=== PATIENT | male | born 1955 | race Hispanic/Latino ===

== ENCOUNTER 2017-08-27 04:56 | Inpatient (IN) | payer OTHER ==
[2017-08-27 06:03] LABS: Basophils % (Auto) 0.5 % (0.0-1.8); Eosinophils % (Auto) 0.7 % (0.0-4.3); Hematocrit 44.6 % (35.5-45.6); Hemoglobin 14.8 gm/dl (11.8-15.2); Mean Corpuscular HGB Conc 33 % (32-34); Mean Corpuscular Hemoglobin 28 pg (28-32); Mean Corpuscular Volume 83 fl (84-94); Platelet Count 247 K/mm3 (140-440); Red Blood Count 5.36 M/mm3 (3.65-5.03); Red Cell Distribution Width 14.4 % (13.2-15.2); White Blood Count 11.1 K/mm3 (4.5-11.0)
[2017-08-27 06:09] LABS: Alanine Aminotransferase 15 units/L (7-56); Albumin 4.4 g/dL (3.9-5); Albumin/Globulin Ratio 1.7 %; Alkaline Phosphatase 58 units/L (35-129); Anion Gap 17 mmol/L; BUN/Creatinine Ratio 23; Blood Urea Nitrogen 16 mg/dL (9-20); Calcium 9.9 mg/dL (8.4-10.2); Carbon Dioxide 26 mmol/L (22-30); Chloride 99.1 mmol/L (98-107); Glucose 279 mg/dL (75-100); Potassium 3.8 mmol/L (3.6-5.0); Sodium 138 mmol/L (137-145)
--- NOTE | 2017-08-27 06:19 | Cat Scan Report ---
FINAL REPORT EXAM: CT HEAD/BRAIN WO CON HISTORY: confusion TECHNIQUE: Routine axial imaging was obtained the brain without IV contrast. FINDINGS: The ventricular system is appropriate in size and is symmetric. There is no evidence of acute stroke or hemorrhage. There is a remote lacunar infarct in the white matter of the right frontal lobe. The posterior fossa structures reveal mild volume loss. The sinuses reveal patchy mucosal thickening in the left ethmoid air cells. The mastoid air cells are well pneumatized. IMPRESSION: No evidence of acute stroke or hemorrhage. Remote lacunar infarct in the deep white matter of the right frontal lobe. Patchy left ethmoidal sinusitis.
[2017-08-27 08:14] LABS: Creatine Kinase 156 units/L (55-170); Creatine Kinase MB 2.5 ng/mL (0.0-4.0)
[2017-08-27] MEDS ORDERED: APRESOLINE IV ONE (11:11)
[2017-08-27 11:23] LABS: Urine Drugs of Abuse Note Disclamer
[2017-08-27 11:34] LABS: Bilirubin,Urine NEG (Negative); Blood,Urine NEG (Negative); Ketones,Urine TR mg/dL (Negative); Leukocyte Esterase,Urine NEG (Negative); Mucus,Urine 2+ /HPF; Nitrite,Urine NEG (Negative); Urobilinogen,Urine < 2.0 mg/dL (<2.0)
--- NOTE | 2017-08-27 11:38 | Emergency Department Report ---
HPI - General Chief Complaint: Altered Mental Status Time Seen by Provider: 08/27/17 11:10 - HPI HPI: 61-year-old male presents to the emergency department by EMS from the airport after returning from the [facility] after being there for about 6 months. The patient says that he was dealing with a lot of stress over in the [facility] and also had not gotten much sleep. However there was an episode in which the patient had confusion while on the plane. He was not sure how he got onto the plane, where he was, where he was going. He denied any headache, visual change, slurred speech or any other neurological deficits. He has a history of diabetes and says that he was found to have a blood sugar of about 500 by EMS at that time. Allegedly he was given some insulin but then encouraged to eat some "complex carbohydrates" so that he did not become hypoglycemic. He also has a history of hypertension and presents with very elevated blood pressure. The patient took some metformin and metoprolol just after presentation here. The patient says that the confusion has improved but he feels generally weak and dizzy. ED Past Medical Hx - Past Medical History Previous Medical History?: Yes Hx Hypertension: Yes Hx Diabetes: Yes Additional medical history: NeuroPathy, Vertigo - Surgical History Past Surgical History?: Yes Additional Surgical History: Back L4-L5 - Social History Smoking Status: Never Smoker Substance Use Type: None ED Review of Systems ROS: Stated complaint: HIGH BLOOD PRESSURE Other details as noted in HPI Comment: All other systems reviewed and negative Constitutional: denies: chills, fever Eyes: denies: eye pain, eye discharge, vision change ENT: denies: ear pain, throat pain Respiratory: denies: cough, shortness of breath, wheezing Cardiovascular: denies: chest pain, palpitations Gastrointestinal: denies: abdominal pain, nausea, diarrhea Genitourinary: denies: urgency, dysuria Musculoskeletal: denies: back pain, joint swelling, arthralgia Skin: denies: rash, lesions Neurological: weakness, confusion Physical Exam - Physical Exam Vital Signs: Vital Signs 08/27/17 08/27/17 05:12 11:17 Temperature 97.8 F 98.1 F Pulse Rate 86 82 Respiratory 18 17 Rate Blood Pressure 190/88 174/92 [Right] O2 Sat by Pulse 99 98 Oximetry Physical Exam: GENERAL: The patient is well-developed well-nourished. HENT: Normocephalic. Atraumatic. Patient has moist mucous membranes. EYES: Extraocular motions are intact. Pupils equal reactive to light bilaterally. No nystagmus. NECK: Supple. Trachea is midline. CHEST/LUNGS: Clear to auscultation. There is no respiratory distress noted. HEART/CARDIOVASCULAR: Regular. There is no tachycardia. There is no gallop rub or murmur. ABDOMEN: Abdomen is soft, nontender. Patient has normal bowel sounds. There is no abdominal distention. SKIN: Skin is warm and dry. NEURO: The patient is awake, alert, and oriented. The patient is cooperative. The patient has no focal neurologic deficits. The patient has normal speech. Cranial nerves II through XII grossly intact. No pronator drift. MUSCULOSKELETAL: There is no tenderness or deformity. There is no evidence of acute injury. ED Course Vital Signs 08/27/17 08/27/17 05:12 11:17 Temperature 97.8 F 98.1 F Pulse Rate 86 82 Respiratory 18 17 Rate Blood Pressure 190/88 174/92 [Right] O2 Sat by Pulse 99 98 Oximetry ED Medical Decision Making - Lab Data Result diagrams: 08/27/17 05:34 08/27/17 05:34 - EKG Data -: EKG Interpreted by Ga EKG shows normal: sinus rhythm, axis, intervals, QRS complexes, ST-T waves ( nonspecific ST-T waves) Rate: normal - EKG Data Interpretation: nonspecific ST-T wave pj - Radiology Data Radiology results: report reviewed EXAM: CT HEAD/BRAIN WO CON HISTORY: confusion TECHNIQUE: Routine axial imaging was obtained the brain without IV contrast. FINDINGS: The ventricular system is appropriate in size and is symmetric. There is no evidence of acute stroke or hemorrhage. There is a remote lacunar infarct in the white matter of the right frontal lobe. The posterior fossa structures reveal mild volume loss. The sinuses reveal patchy mucosal thickening in the left ethmoid air cells. The mastoid air cells are well pneumatized. IMPRESSION: No evidence of acute stroke or hemorrhage. Remote lacunar infarct in the deep white matter of the right frontal lobe. Patchy left ethmoidal sinusitis. Transcribed By: RB Dictated By: JADA WEISS MD Electronically Authenticated By: JADA WEISS MD Signed Date/Time: 08/27/17216 - Medical Decision Making 61-year-old male presents to the emergency department from the airport after returning from the [facility] with the complaint of some confusion and/or altered mental status. The patient had been traveling but yet was confused about how he got on the plane, where he is going and multiple other pieces of information that should be common knowledge to the patient. He has a history of [id number] diabetes and was found to have hyperglycemia at that time. He also presents with very elevated blood pressure despite saying that he has been taking his medications. The patient is currently a O 3 but still says he feels weak and dizzy. His second lactic acid level became elevated. He has elevated blood pressure and elevated blood sugar and with this complaints of weakness and dizziness and this recent altered mental status, the patient will be admitted the hospital for further evaluation and treatment and has been except for admission by the hospitalist, Dr. Black. - Differential Diagnosis TIA, CVA, DKA, HHNK, Sepsis Critical Care Time: No Critical care attestation.: If time is entered above; I have spent that time in minutes in the direct care of this critically ill patient, excluding procedure time. ED Disposition Clinical Impression: Elevated lactic acid level, Hypertensive urgency, Hyperglycemia Altered mental status Qualifiers: Altered mental status type: transient alteration of awareness Qualified Code(s) : R40.4 - Transient alteration of awareness Disposition: DC-09 OP ADMIT IP TO THIS HOSP Is pt being admited?: Yes Condition: Stable Referrals: PRIMARY CARE, [Primary Care Provider] - 3-5 Days Time of Disposition: 11:44
[2017-08-27] MEDS: HEPARIN SUB-Q SCH ×2 (17:34→22:35)
[2017-08-27] MEDS ORDERED: DULCOLAX PR PRN ×2 (21:22→21:29)
[2017-08-27] MEDS ORDERED: MILK OF MAGNESIA PO PRN (21:22)
[2017-08-27] MEDS ORDERED: TYLENOL PO PRN ×2 (21:22→21:29)
[2017-08-27] MEDS ORDERED: ZOFRAN IV PRN ×2 (21:22→21:29)
--- NOTE | 2017-08-27 21:22 | History and Physical Report ---
History of Present Illness Date of examination: 08/27/17 Date of admission: 08/27/17 11:44 Chief complaint: CC AMS for 12 hrs History of present illness: DUKE -61-year-old male presents to the emergency department by EMS from the airport after returning from the [facility] after being there for about 6 months. The patient says that he was dealing with a lot of stress over in the [facility] and also had not gotten much sleep. However there was an episode in which the patient had confusion while on the plane. He was not sure how he got onto the plane, where he was, where he was going. He denied any headache, visual change, slurred speech or any other neurological deficits. He has a history of diabetes and says that he was found to have a blood sugar of about 500 by EMS at that time. Allegedly he was given some insulin but then encouraged to eat some "complex carbohydrates" so that he did not become hypoglycemic. He also has a history of hypertension and presents with very elevated blood pressure. The patient took some metformin and metoprolol just after presentation here. The patient says that the confusion has improved but he feels generally weak and dizzy. Past Medical History Previous Medical History?: Yes Hx Hypertension: Yes Hx Diabetes: Yes Additional medical history: NeuroPathy, Vertigo - Surgical History Past Surgical History?: Yes Additional Surgical History: Back L4-L5 - Social History Smoking Status: Never Smoker Substance Use Type: None Review of Systems Stated complaint: HIGH BLOOD PRESSURE Other details as noted in HPI Comment: All other systems reviewed and negative Constitutional: denies: chills, fever Eyes: denies: eye pain, eye discharge, vision change ENT: denies: ear pain, throat pain Respiratory: denies: cough, shortness of breath, wheezing Cardiovascular: denies: chest pain, palpitations Gastrointestinal: denies: abdominal pain, nausea, diarrhea Genitourinary: denies: urgency, dysuria Musculoskeletal: denies: back pain, joint swelling, arthralgia Skin: denies: rash, lesions Neurological: weakness, confusion Medications and Allergies Allergies Allergy/AdvReac Type Severity Reaction Status Date / Time No Known Allergies Allergy Unverified 08/27/17 05:10 Home Medications Medication Instructions Recorded Confirmed Last Taken Type Aspirin [Lo-Dose Aspirin EC] 81 mg PO DAILY 08/27/17 08/27/17 08/27/17 History Gabapentin [Neurontin] 100 mg PO Q8HR PRN 08/27/17 08/27/17 Unknown History Insulin NPH/Regular [Novolin 70/30] 20 unit SQ BID 08/27/17 08/27/17 08/27/17 History Metformin HCl [Glucophage] 1,000 mg PO BID 08/27/17 08/27/17 08/27/17 History Metoprolol [Lopressor TAB] 50 mg PO BID 08/27/17 08/27/17 08/27/17 History Multivitamin Tab [Multiple Vitamin 1 each PO QDAY 08/27/17 08/27/17 08/27/17 History TAB (Theragran)] Active Meds: Active Medications Heparin Sodium (Porcine) (Heparin) 5,000 unit SUB-Q Q8HR TAHIR Last Admin: 08/27/17 17:34 Dose: 5,000 unit Exam - Constitutional Vitals: Temp Pulse Resp BP Pulse Ox 97.6 F 84 18 152/79 97 08/27/17 15:22 08/27/17 15:22 08/27/17 15:22 08/27/17 15:22 08/27/17 15:22 General appearance: Present: no acute distress, well-nourished - EENT Eyes: Present: PERRL ENT: hearing intact, clear oral mucosa - Neck Neck: Present: supple, normal ROM - Respiratory Respiratory effort: normal Respiratory: bilateral: CTA - Cardiovascular Heart Sounds: Present: S1 & S2. Absent: rub, click - Extremities Extremities: pulses symmetrical, No edema Peripheral Pulses: within normal limits - Abdominal General gastrointestinal: Present: soft, non-tender, non-distended, normal bowel sounds Male genitourinary: Present: normal - Integumentary Integumentary: Present: clear, warm, dry - Musculoskeletal Musculoskeletal: gait normal, strength equal bilaterally - Psychiatric Psychiatric: appropriate mood/affect, intact judgment & insight - Neurologic Neurologic: CNII-XII intact, moves all extremities Results - Labs CBC & Chem 7: 08/27/17 05:34 08/27/17 05:34 Labs: Laboratory Last Values WBC 11.1 K/mm3 (4.5-11.0) H 08/27/17 05:34 RBC 5.36 M/mm3 (3.65-5.03) H 08/27/17 05:34 Hgb 14.8 gm/dl (11.8-15.2) 08/27/17 05:34 Hct 44.6 % (35.5-45.6) 08/27/17 05:34 MCV 83 fl (84-94) L 08/27/17 05:34 MCH 28 pg (28-32) 08/27/17 05:34 MCHC 33 % (32-34) 08/27/17 05:34 RDW 14.4 % (13.2-15.2) 08/27/17 05:34 Plt Count 247 K/mm3 (140-440) 08/27/17 05:34 Lymph % (Auto) 21.0 % (13.4-35.0) 08/27/17 05:34 [place] % (Auto) 11.1 % (0.0-7.3) H 08/27/17 05:34 Eos % (Auto) 0.7 % (0.0-4.3) 08/27/17 05:34 Baso % (Auto) 0.5 % (0.0-1.8) 08/27/17 05:34 Lymph # 2.3 K/mm3 (1.2-5.4) 08/27/17 05:34 [place] # 1.2 K/mm3 (0.0-0.8) H 08/27/17 05:34 Eos # 0.1 K/mm3 (0.0-0.4) 08/27/17 05:34 Baso # 0.1 K/mm3 (0.0-0.1) 08/27/17 05:34 Seg Neutrophils % 66.7 % (40.0-70.0) 08/27/17 05:34 Seg Neutrophils # 7.4 K/mm3 (1.8-7.7) 08/27/17 05:34 VBG pH 7.412 (7.320-7.420) 08/27/17 05:34 Sodium 138 mmol/L (137-145) 08/27/17 05:34 Potassium 3.8 mmol/L (3.6-5.0) 08/27/17 05:34 Chloride 99.1 mmol/L (98-107) 08/27/17 05:34 Carbon Dioxide 26 mmol/L (22-30) 08/27/17 05:34 Anion Gap 17 mmol/L 08/27/17 05:34 BUN 16 mg/dL (9-20) 08/27/17 05:34 Creatinine 0.7 mg/dL (0.8-1.5) L 08/27/17 05:34 Estimated GFR > 60 ml/min 08/27/17 05:34 BUN/Creatinine Ratio 23 % 08/27/17 05:34 Glucose 279 mg/dL (75-100) H 08/27/17 05:34 POC Glucose 261 (70-105) H 08/27/17 15:32 Lactic Acid 2.30 mmol/L (0.7-2.0) H* 08/27/17 08:43 Calcium 9.9 mg/dL (8.4-10.2) 08/27/17 05:34 Magnesium 1.90 mg/dL (1.7-2.3) 08/27/17 05:34 Total Bilirubin 0.70 mg/dL (0.1-1.2) 08/27/17 05:34 AST 15 units/L (5-40) 08/27/17 05:34 ALT 15 units/L (7-56) 08/27/17 05:34 Alkaline Phosphatase 58 units/L (35-129) 08/27/17 05:34 Total Creatine Kinase 156 units/L (55-170) 08/27/17 05:34 CK-MB (CK-2) 2.5 ng/mL (0.0-4.0) 08/27/17 05:34 CK-MB (CK-2) Rel Index 1.6 (0-4) 08/27/17 05:34 Troponin T < 0.010 ng/mL (0.00-0.029) 08/27/17 05:34 Total Protein 7.0 g/dL (6.3-8.2) 08/27/17 05:34 Albumin 4.4 g/dL (3.9-5) 08/27/17 05:34 Albumin/Globulin Ratio 1.7 % 08/27/17 05:34 TSH 1.890 mlU/mL (0.270-4.200) 08/27/17 05:34 Urine Color Yellow (Yellow) 08/27/17 11:18 Urine Turbidity Clear (Clear) 08/27/17 11:18 Urine pH 5.0 (5.0-7.0) 08/27/17 11:18 Ur Specific [place] 1.032 (1.003-1.030) H 08/27/17 11:18 Urine Protein 30 mg/dl mg/dL (Negative) 08/27/17 11:18 Urine Glucose (UA) >=500 mg/dL (Negative) 08/27/17 11:18 Urine Ketones Tr mg/dL (Negative) 08/27/17 11:18 Urine Blood Neg (Negative) 08/27/17 11:18 Urine Nitrite Neg (Negative) 08/27/17 11:18 Urine Bilirubin Neg (Negative) 08/27/17 11:18 Urine Urobilinogen < 2.0 mg/dL (<2.0) 08/27/17 11:18 Ur Leukocyte Esterase Neg (Negative) 08/27/17 11:18 Urine WBC (Auto) 1.0 /HPF (0.0-6.0) 08/27/17 11:18 Urine RBC (Auto) 5.0 /HPF (0.0-6.0) 08/27/17 11:18 U Epithel Cells (Auto) < 1.0 /HPF (0-13.0) 08/27/17 11:18 Urine Mucus 2+ /HPF 08/27/17 11:18 Salicylates < 0.3 mg/dL (2.8-20.0) L 08/27/17 05:34 Urine Opiates Screen Presumptive negative 08/27/17 11:18 Urine Methadone Screen Presumptive negative 08/27/17 11:18 Acetaminophen < 15.0 ug/mL (10.0-30.0) 08/27/17 05:34 Ur Barbiturates Screen Presumptive negative 08/27/17 11:18 Ur Phencyclidine Scrn Presumptive negative 08/27/17 11:18 Ur Amphetamines Screen Presumptive negative 08/27/17 11:18 U Benzodiazepines Scrn Presumptive negative 08/27/17 11:18 Urine Cocaine Screen Presumptive negative 08/27/17 11:18 U Marijuana (THC) Screen Presumptive negative 08/27/17 11:18 Drugs of Abuse Note Disclamer 08/27/17 11:18 Plasma/Serum Alcohol < 0.01 gm% (0-0.07) 08/27/17 05:34 Cardiac Enzymes 08/27/17 Range/Units 05:34 Total Creatine Kinase 156 (55-170) units/L CK-MB (CK-2) 2.5 (0.0-4.0) ng/mL Troponin T < 0.010 (0.00-0.029) ng/mL Urine 08/27/17 Range/Units 11:18 Urine Color Yellow (Yellow) Urine pH 5.0 (5.0-7.0) Ur Specific [place] 1.032 H (1.003-1.030) Urine Protein 30 mg/dl (Negative) mg/dL Urine Glucose (UA) >=500 (Negative) mg/dL - Imaging and Cardiology CT Scan - head: report reviewed (NAF) Assessment and Plan Advance Directives: Yes (Full code) VTE prophylaxis?: Chemical Plan of care discussed with patient/family: Yes - Patient Problems (1) Acute metabolic encephalopathy Current Visit: Yes Status: Acute Plan to address problem: Probably sec to hypoglycemia and dehydration. Patient very coherent during my exam. IV fluids and monitor accuchecks and adjust his insulin/hypoglycemics (2) Dehydration Current Visit: Yes Status: Acute Plan to address problem: Sec to Long Flight and inadequate fluid intake. IV fluids for now (3) T2DM (type 2 diabetes mellitus) Current Visit: Yes Status: Chronic Qualifiers: Diabetes mellitus complication status: without complication Diabetes mellitus complication detail: D Diabetic retinopathy severity: D Proliferative retinopathy type: P Diabetes mellitus macular edema: D Diabetes mellitus senior care insulin use: with bead trimmer use Laterality: L Chronic kidney disease stage: C Qualified Code(s): E11.9 - Type 2 diabetes mellitus without complications; Z79.4 - correction (current) use of insulin; Z79.4 - medical office technician (current) use of insulin; Z79.4 - medical office technician (current) use of insulin; Z79.4 - correction (current) use of insulin Plan to address problem: Coverage.Check A1c (4) HTN (hypertension) Current Visit: Yes Status: Chronic Qualifiers: Hypertension type: essential hypertension Qualified Code(s): I10 - Essential (primary) hypertension Plan to address problem: Cont Antihypertensives (5) Peripheral neuropathy Current Visit: Yes Status: Chronic Qualifiers: Peripheral neuropathy type: polyneuropathy associated with underlying disease Qualified Code(s): G63 - Polyneuropathy in diseases classified elsewhere Plan to address problem: On Gabapentin 100 q8h (6) DVT prophylaxis Current Visit: Yes Status: Acute Plan to address problem: On Lovenox
[2017-08-27] MEDS ORDERED: PERCOCET 5/325 PO PRN (21:23)
[2017-08-27] MEDS ORDERED: DILAUDID IV PRN (21:23)
[2017-08-27] MEDS ORDERED: NEURONTIN PO PRN (21:27)
[2017-08-27] MEDS ORDERED: NON-FORMULARY (Metformin Hcl [Glucophage] 1,000 MG) PO SCH (22:00)
[2017-08-27] MEDS: LOPRESSOR PO SCH (22:34)
[2017-08-27] MEDS: HALFPRIN EC PO SCH (22:34)
[2017-08-27] MEDS: NACL 0.9% 1000 ML 1,000 ML IV SCH (22:35)
[2017-08-27] MEDS: THERAGRAN Tab PO SCH (22:39)
[2017-08-27] MEDS: PEPCID IV SCH (22:39)
[2017-08-27] MEDS: NOVOLOG SUB-Q SCH (22:40)
[2017-08-28] MEDS: HEPARIN SUB-Q SCH (05:56)
[2017-08-28 07:53] LABS: Basophils % (Auto) 0.8 % (0.0-1.8); Eosinophils % (Auto) 0.8 % (0.0-4.3); Hematocrit 43.4 % (35.5-45.6); Mean Corpuscular HGB Conc 35 % (32-34); Mean Corpuscular Hemoglobin 28 pg (28-32); Mean Corpuscular Volume 82 fl (84-94); Platelet Count 211 K/mm3 (140-440); Red Cell Distribution Width 13.9 % (13.2-15.2); White Blood Count 9.4 K/mm3 (4.5-11.0)
[2017-08-28] MEDS ORDERED: GLUCOPHAGE PO SCH (08:00)
[2017-08-28 08:10] LABS: Alanine Aminotransferase 14 units/L (7-56); Albumin 3.8 g/dL (3.9-5); Albumin/Globulin Ratio 1.3 %; Alkaline Phosphatase 58 units/L (35-129); Anion Gap 19 mmol/L; BUN/Creatinine Ratio 25; Blood Urea Nitrogen 15 mg/dL (9-20); Calcium 9.4 mg/dL (8.4-10.2); Carbon Dioxide 25 mmol/L (22-30); Chloride 100.6 mmol/L (98-107); Glucose 246 mg/dL (75-100); Sodium 141 mmol/L (137-145); Total Protein 6.8 g/dL (6.3-8.2)
[2017-08-28] MEDS: NOVOLOG SUB-Q SCH ×4 (09:45→23:50)
--- NOTE | 2017-08-28 11:02 | Progress Note ---
Assessment and Plan Assessment and plan: Patient is 61 yo man with history of type 2 diabetes mellitus and hypertension who presents to [facility] emergency Department with altered mental status from the [facility] airport traveling from the [facility] to his home in [place]. Patient was waiting for connecting flight when he developed altered mental status. Patient has been in the [facility] for about 6 months. Patient was in the [facility] visiting a woman he met online. He says he was unable to get back to the [place] because of financial reasons. CT head without contrast read as no evidence of acute stroke or hemorrhage, remote lacunar infarct in the deep white matter of the right frontal lobe, patchy left ethmoidal sinusitis. -Acute metabolic encephalopathy: treat the underlying condition -Uncontrolled Diabetes Mellitus: add ssi, ADA -Abnormal CT, ?new stroke: use stroke protocol, get mri -Acute Ethmoidal Sinusitis borderline/suspected sepsis, repeat RR 20 and HR 92, poa: start iv abx because this maybe causing the AMS -DVT prophylaxis: Subcutaneous Lovenox -Accelerated hypertension: Treat with IV antihypertensive. Full code History Interval history: Patient was seen and examined. Follow-up on current diagnosis/dehydration. Overnight uneventful. Patient denies any chest pain, shortness breath, nausea/ vomiting or severe headaches. Imaging, nursing note, chart, labs and old chart reviewed. Discussed with patient. Hospitalist Physical - Physical exam Narrative exam: GEN: WDWN, NAD, AWAKE, ALERT, ORIENTATED x 3 HEENT: NCAT, EOMI, PERRL, OP Clear NECK: supple, no adenopathy, no thyromegaly, no JVD CVS/HEART: RRR, NORMAL S1S2, NO JVD, pulses present bilaterally CHEST/LUNGS: CTA B, Symmetrical chest expansion, good air entry bilaterally GI/Abdomen: soft, NTND, good bowel sounds, no guarding or rebound /Bladder: no suprapubic tenderness, no CVA or paraspinal tenderness EXT/Skin: no c/c/e, no obvious rash MSK: FROM x 4 Neuro: CN 2-12 grossly intact, no new focal deficits Psych: calm - Constitutional Vitals: Temp Pulse Resp BP Pulse Ox 97.8 F 82 20 167/67 96 08/28/17 08:05 08/28/17 08:05 08/28/17 08:05 08/28/17 08:05 08/28/17 08:05 General appearance: Present: no acute distress, well-nourished Results - Labs CBC & Chem 7: 08/28/17 06:44 08/28/17 06:44 Labs: Laboratory Last Values WBC 9.4 K/mm3 (4.5-11.0) 08/28/17 06:44 RBC 5.30 M/mm3 (3.65-5.03) H 08/28/17 06:44 Hgb 15.0 gm/dl (11.8-15.2) 08/28/17 06:44 Hct 43.4 % (35.5-45.6) 08/28/17 06:44 MCV 82 fl (84-94) L 08/28/17 06:44 MCH 28 pg (28-32) 08/28/17 06:44 MCHC 35 % (32-34) H 08/28/17 06:44 RDW 13.9 % (13.2-15.2) 08/28/17 06:44 Plt Count 211 K/mm3 (140-440) 08/28/17 06:44 Lymph % (Auto) 24.8 % (13.4-35.0) 08/28/17 06:44 [place] % (Auto) 10.1 % (0.0-7.3) H 08/28/17 06:44 Eos % (Auto) 0.8 % (0.0-4.3) 08/28/17 06:44 Baso % (Auto) 0.8 % (0.0-1.8) 08/28/17 06:44 Lymph # 2.3 K/mm3 (1.2-5.4) 08/28/17 06:44 [place] # 1.0 K/mm3 (0.0-0.8) H 08/28/17 06:44 Eos # 0.1 K/mm3 (0.0-0.4) 08/28/17 06:44 Baso # 0.1 K/mm3 (0.0-0.1) 08/28/17 06:44 Seg Neutrophils % 63.5 % (40.0-70.0) 08/28/17 06:44 Seg Neutrophils # 6.0 K/mm3 (1.8-7.7) 08/28/17 06:44 VBG pH 7.412 (7.320-7.420) 08/27/17 05:34 Sodium 141 mmol/L (137-145) 08/28/17 06:44 Potassium 4.0 mmol/L (3.6-5.0) 08/28/17 06:44 Chloride 100.6 mmol/L (98-107) 08/28/17 06:44 Carbon Dioxide 25 mmol/L (22-30) 08/28/17 06:44 Anion Gap 19 mmol/L 08/28/17 06:44 BUN 15 mg/dL (9-20) 08/28/17 06:44 Creatinine 0.6 mg/dL (0.8-1.5) L 08/28/17 06:44 Estimated GFR > 60 ml/min 08/28/17 06:44 BUN/Creatinine Ratio 25 % 08/28/17 06:44 Glucose 246 mg/dL (75-100) H 08/28/17 06:44 POC Glucose 165 (70-105) H 08/28/17 05:19 Hemoglobin A1c 9.8 % (4-6) H 08/27/17 22:09 Lactic Acid 2.30 mmol/L (0.7-2.0) H* 08/27/17 08:43 Calcium 9.4 mg/dL (8.4-10.2) 08/28/17 06:44 Magnesium 1.90 mg/dL (1.7-2.3) 08/27/17 05:34 Total Bilirubin 0.80 mg/dL (0.1-1.2) 08/28/17 06:44 AST 16 units/L (5-40) 08/28/17 06:44 ALT 14 units/L (7-56) 08/28/17 06:44 Alkaline Phosphatase 58 units/L (35-129) 08/28/17 06:44 Total Creatine Kinase 156 units/L (55-170) 08/27/17 05:34 CK-MB (CK-2) 2.5 ng/mL (0.0-4.0) 08/27/17 05:34 CK-MB (CK-2) Rel Index 1.6 (0-4) 08/27/17 05:34 Troponin T < 0.010 ng/mL (0.00-0.029) 08/27/17 05:34 Total Protein 6.8 g/dL (6.3-8.2) 08/28/17 06:44 Albumin 3.8 g/dL (3.9-5) L 08/28/17 06:44 Albumin/Globulin Ratio 1.3 % 08/28/17 06:44 TSH 1.890 mlU/mL (0.270-4.200) 08/27/17 05:34 Urine Color Yellow (Yellow) 08/27/17 11:18 Urine Turbidity Clear (Clear) 08/27/17 11:18 Urine pH 5.0 (5.0-7.0) 08/27/17 11:18 Ur Specific [place] 1.032 (1.003-1.030) H 08/27/17 11:18 Urine Protein 30 mg/dl mg/dL (Negative) 08/27/17 11:18 Urine Glucose (UA) >=500 mg/dL (Negative) 08/27/17 11:18 Urine Ketones Tr mg/dL (Negative) 08/27/17 11:18 Urine Blood Neg (Negative) 08/27/17 11:18 Urine Nitrite Neg (Negative) 08/27/17 11:18 Urine Bilirubin Neg (Negative) 08/27/17 11:18 Urine Urobilinogen < 2.0 mg/dL (<2.0) 08/27/17 11:18 Ur Leukocyte Esterase Neg (Negative) 08/27/17 11:18 Urine WBC (Auto) 1.0 /HPF (0.0-6.0) 08/27/17 11:18 Urine RBC (Auto) 5.0 /HPF (0.0-6.0) 08/27/17 11:18 U Epithel Cells (Auto) < 1.0 /HPF (0-13.0) 08/27/17 11:18 Urine Mucus 2+ /HPF 08/27/17 11:18 Salicylates < 0.3 mg/dL (2.8-20.0) L 08/27/17 05:34 Urine Opiates Screen Presumptive negative 08/27/17 11:18 Urine Methadone Screen Presumptive negative 08/27/17 11:18 Acetaminophen < 15.0 ug/mL (10.0-30.0) 08/27/17 05:34 Ur Barbiturates Screen Presumptive negative 08/27/17 11:18 Ur Phencyclidine Scrn Presumptive negative 08/27/17 11:18 Ur Amphetamines Screen Presumptive negative 08/27/17 11:18 U Benzodiazepines Scrn Presumptive negative 08/27/17 11:18 Urine Cocaine Screen Presumptive negative 08/27/17 11:18 U Marijuana (THC) Screen Presumptive negative 08/27/17 11:18 Drugs of Abuse Note Disclamer 08/27/17 11:18 Plasma/Serum Alcohol < 0.01 gm% (0-0.07) 08/27/17 05:34
[2017-08-28] MEDS: HALFPRIN EC PO SCH (11:21)
[2017-08-28] MEDS: LOPRESSOR PO SCH ×2 (11:21→21:46)
[2017-08-28] MEDS: THERAGRAN Tab PO SCH (11:21)
[2017-08-28] MEDS: PEPCID IV SCH (11:21)
[2017-08-28] MEDS ORDERED: SODIUM CHLORIDE FLUSH SYRINGE 10 ML IV PRN (11:25)
[2017-08-28] MEDS ORDERED: REGLAN PO PRN (11:25)
[2017-08-28] MEDS: ROCEPHIN/NS 1 GM/50 ML 1 GM/50 ML BAG IV SCH (14:00)
--- NOTE | 2017-08-28 15:59 | Magnetic Resonance Report ---
MRI scan of the brain: History: Stroke. Technique: Multiplanar multisequence images were obtained without contrast injection. Findings: No evidence of restricted diffusion. Ventricles are normal in size and midline in location. Focal area of low signal intensity left cerebellum and right periventricular basal ganglia suggestive chronic lacunar infarct. Periventricular areas of hyperintensity bilaterally. Mild cortical atrophy. No extra-axial fluid collection. Normal brainstem. Small retention cyst right maxillary sinus. Impression: No acute intracranial abnormality. Chronic lacunar infarcts. Small vessel ischemic changes. Mild cortical atrophy. Small retention cyst right maxillary sinus.
--- NOTE | 2017-08-28 16:01 | Magnetic Resonance Report ---
MRI of brain with 3-D image post processing: History: Stroke. Findings: Vessels of [place] are widely patent with mild atherosclerotic changes of the middle cerebral vessels. No stenosis occlusion or aneurysm. Dominant right vertebral. Normal basilar artery. Normal left posterior communicating. The right posterior communicating artery visualized. Impression: No significant abnormality at vessels of [place].
[2017-08-28] MEDS: NACL 0.9% 1000 ML 1,000 ML IV SCH (17:30)
[2017-08-28] MEDS: ZOCOR PO SCH (21:46)
[2017-08-28] MEDS: PEPCID PO SCH (21:47)
[2017-08-28] MEDS: LOVENOX SUB-Q SCH (21:47)
[2017-08-29] MEDS: NOVOLOG SUB-Q SCH ×4 (08:16→22:51)
[2017-08-29] MEDS: THERAGRAN Tab PO SCH (10:17)
[2017-08-29] MEDS: PEPCID PO SCH ×2 (10:17→22:53)
[2017-08-29] MEDS: LOPRESSOR PO SCH ×2 (10:17→22:53)
[2017-08-29] MEDS: HALFPRIN EC PO SCH (10:17)
[2017-08-29] MEDS: ROCEPHIN/NS 1 GM/50 ML 1 GM/50 ML BAG IV SCH (10:18)
[2017-08-29] MEDS ORDERED: HYDROGEN PEROXIDE TP PRN (16:45)
--- NOTE | 2017-08-29 17:07 | Progress Note ---
Assessment and Plan Patient is 61 yo man with history of type 2 diabetes mellitus and hypertension who presents to [facility] emergency Department with altered mental status from the [facility] airport traveling from the [facility] to his home in [place]. Patient was waiting for connecting flight when he developed altered mental status. Patient has been in the [facility] for about 6 months. Patient was in the [facility] visiting a woman he met online. He says he was unable to get back to the [place] because of financial reasons. CT head without contrast read as no evidence of acute stroke or hemorrhage, remote lacunar infarct in the deep white matter of the right frontal lobe, patchy left ethmoidal sinusitis. -Acute metabolic encephalopathy: May be cigarettes a uncontrolled diabetes mellitus -Uncontrolled Diabetes Mellitus: add ssi, ADA -Abnormal CT: MRI MRA of the brain was unremarkable for any acute stroke. For PT /OT -Acute Ethmoidal Sinusitis borderline/suspected sepsis, repeat RR 20 and HR 92, poa: start iv abx -Accelerated hypertension: Treat with IV antihypertensive. -DVT prophylaxis: Subcutaneous Lovenox _Full code Subjective Date of service: 08/29/17 Principal diagnosis: metabolic encephalopathy, Interval history: Patient seen and examined, denies any chest pain or shortness of breath. Alteration in mental status improvement. Objective - Exam Narrative Exam: Constitutional: Well-nourished well-developed. In no distress Head: Normocephalic atraumatic Eyes: Pupils are equal round and reactive to light Nose: No enlarged turbinates, no septal deviation. Mouth: Moist mucous membranes. Neck: Supple no thyromegaly. No bruit. No JVD Heart: Regular rate and rhythm, S1-S2 abnormal. No rubs murmurs or gallop Lungs: Clear to auscultation bilaterally no rales or rhonchi Abdomen: Soft nontender both his upper extremities no edema orclubbing. Extremities: No edema no cyanosis and no clubbing. Neuro: Alert oriented -3 no focal sensory or motor deficit. Skin: No rashes no hyperemic spots - Constitutional Vitals: Vital Signs - 12hr 08/29/17 08/29/17 08/29/17 05:39 08:33 10:17 Temperature 98.7 F 98.7 F Pulse Rate 79 Respiratory 14 20 Rate Blood Pressure 147/72 158/87 173/74 O2 Sat by Pulse 97 Oximetry 08/29/17 16:28 Temperature 98.6 F Pulse Rate 81 Respiratory 20 Rate Blood Pressure 175/87 O2 Sat by Pulse 96 Oximetry - Labs CBC & Chem 7: 08/28/17 06:44 08/28/17 06:44 Labs: Abnormal lab results 08/29/17 08/29/17 08/29/17 Range/Units 04:47 05:38 12:47 POC Glucose 312 H 148 H (70-105) HDL Cholesterol 31 L (40-59) mg/dL
[2017-08-29] MEDS: APRESOLINE IV PRN (20:32)
[2017-08-29] MEDS ORDERED: AMBIEN PO ONE (21:21)
[2017-08-29] MEDS: LOVENOX SUB-Q SCH (22:52)
[2017-08-29] MEDS: ZOCOR PO SCH (22:53)
[2017-08-29] MEDS: HYDROGEN PEROXIDE MC SCH (23:16)
[2017-08-30] MEDS: APRESOLINE IV PRN (04:53)
[2017-08-30 08:20] LABS: Basophils % (Auto) 0.8 % (0.0-1.8); Eosinophils % (Auto) 0.9 % (0.0-4.3); Hematocrit 44.5 % (35.5-45.6); Hemoglobin 14.9 gm/dl (11.8-15.2); Mean Corpuscular HGB Conc 34 % (32-34); Mean Corpuscular Hemoglobin 27 pg (28-32); Mean Corpuscular Volume 82 fl (84-94); Platelet Count 213 K/mm3 (140-440); Red Blood Count 5.43 M/mm3 (3.65-5.03); Red Cell Distribution Width 13.8 % (13.2-15.2); White Blood Count 8.8 K/mm3 (4.5-11.0)
[2017-08-30 08:46] LABS: Alanine Aminotransferase 14 units/L (7-56); Albumin 3.7 g/dL (3.9-5); Albumin/Globulin Ratio 1.2 %; Alkaline Phosphatase 57 units/L (35-129); Anion Gap 15 mmol/L; BUN/Creatinine Ratio 22; Blood Urea Nitrogen 13 mg/dL (9-20); Calcium 9.1 mg/dL (8.4-10.2); Carbon Dioxide 26 mmol/L (22-30); Glucose 255 mg/dL (75-100); Potassium 4.1 mmol/L (3.6-5.0); Sodium 137 mmol/L (137-145); Total Protein 6.8 g/dL (6.3-8.2)
[2017-08-30] MEDS: NOVOLOG SUB-Q SCH ×2 (09:06→12:46)
[2017-08-30 09:22] VITALS: BP 163/84
[2017-08-30] MEDS: THERAGRAN Tab PO SCH (09:26)
[2017-08-30] MEDS: ROCEPHIN/NS 1 GM/50 ML 1 GM/50 ML BAG IV SCH (09:26)
[2017-08-30] MEDS: PEPCID PO SCH (09:26)
[2017-08-30] MEDS: HALFPRIN EC PO SCH (09:26)
[2017-08-30] MEDS: LOPRESSOR PO SCH (09:27)
[2017-08-30] MEDS: HYDROGEN PEROXIDE MC SCH (10:13)
--- NOTE | 2017-08-30 11:28 | Progress Note ---
Assessment and Plan Assessment and plan: Patient is 61 yo man with history of type 2 diabetes mellitus and hypertension who presents to [facility] emergency Department with altered mental status from the [facility] airport traveling from the [facility] to his home in [place]. Patient was waiting for connecting flight when he developed altered mental status. Patient has been in the [facility] for about 6 months. Patient was in the [facility] visiting a woman he met online. He says he was unable to get back to the [place] because of financial reasons. CT head without contrast read as no evidence of acute stroke or hemorrhage, remote lacunar infarct in the deep white matter of the right frontal lobe, patchy left ethmoidal sinusitis. -Acute metabolic encephalopathy: treat the underlying condition -Uncontrolled Diabetes Mellitus: add ssi, ADA -Abnormal CT, ?new stroke: use stroke protocol, get mri -Acute Ethmoidal Sinusitis borderline/suspected sepsis, repeat RR 20 and HR 92, poa: start iv abx because this maybe causing the AMS -DVT prophylaxis: Subcutaneous Lovenox -Accelerated hypertension: Treat with IV antihypertensive. Full code He has Bipolar disorder but doesnt want to take any medications. He was on [place] long time ago per patient. He denies SI, HI. Will discharge to retirement. History Interval history: Patient was seen and examined. Follow-up on current diagnosis/dehydration. Overnight uneventful. Patient denies any chest pain, shortness breath, nausea/ vomiting or severe headaches. Imaging, nursing note, chart, labs and old chart reviewed. Discussed with patient. Hospitalist Physical - Physical exam Narrative exam: GEN: WDWN, NAD, AWAKE, ALERT, ORIENTATED x 3 HEENT: NCAT, EOMI, PERRL, OP Clear NECK: supple, no adenopathy, no thyromegaly, no JVD CVS/HEART: RRR, NORMAL S1S2, NO JVD, pulses present bilaterally CHEST/LUNGS: CTA B, Symmetrical chest expansion, good air entry bilaterally GI/Abdomen: soft, NTND, good bowel sounds, no guarding or rebound /Bladder: no suprapubic tenderness, no CVA or paraspinal tenderness EXT/Skin: no c/c/e, no obvious rash MSK: FROM x 4 Neuro: CN 2-12 grossly intact, no new focal deficits Psych: calm - Constitutional Vitals: Temp Pulse Resp BP Pulse Ox 97.8 F 78 20 163/84 97 08/30/17 07:24 08/30/17 07:24 08/30/17 07:24 08/30/17 07:24 08/30/17 07:24 General appearance: Present: no acute distress, well-nourished Results - Labs CBC & Chem 7: 08/30/17 07:49 08/30/17 07:49 Labs: Laboratory Last Values WBC 8.8 K/mm3 (4.5-11.0) 08/30/17 07:49 RBC 5.43 M/mm3 (3.65-5.03) H 08/30/17 07:49 Hgb 14.9 gm/dl (11.8-15.2) 08/30/17 07:49 Hct 44.5 % (35.5-45.6) 08/30/17 07:49 MCV 82 fl (84-94) L 08/30/17 07:49 MCH 27 pg (28-32) L 08/30/17 07:49 MCHC 34 % (32-34) 08/30/17 07:49 RDW 13.8 % (13.2-15.2) 08/30/17 07:49 Plt Count 213 K/mm3 (140-440) 08/30/17 07:49 Lymph % (Auto) 29.2 % (13.4-35.0) 08/30/17 07:49 Garrard % (Auto) 8.6 % (0.0-7.3) H 08/30/17 07:49 Eos % (Auto) 0.9 % (0.0-4.3) 08/30/17 07:49 Baso % (Auto) 0.8 % (0.0-1.8) 08/30/17 07:49 Lymph # 2.6 K/mm3 (1.2-5.4) 08/30/17 07:49 Garrard # 0.8 K/mm3 (0.0-0.8) 08/30/17 07:49 Eos # 0.1 K/mm3 (0.0-0.4) 08/30/17 07:49 Baso # 0.1 K/mm3 (0.0-0.1) 08/30/17 07:49 Seg Neutrophils % 60.5 % (40.0-70.0) 08/30/17 07:49 Seg Neutrophils # 5.3 K/mm3 (1.8-7.7) 08/30/17 07:49 VBG pH 7.412 (7.320-7.420) 08/27/17 05:34 Sodium 137 mmol/L (137-145) 08/30/17 07:49 Potassium 4.1 mmol/L (3.6-5.0) 08/30/17 07:49 Chloride 100.0 mmol/L (98-107) 08/30/17 07:49 Carbon Dioxide 26 mmol/L (22-30) 08/30/17 07:49 Anion Gap 15 mmol/L 08/30/17 07:49 BUN 13 mg/dL (9-20) 08/30/17 07:49 Creatinine 0.6 mg/dL (0.8-1.5) L 08/30/17 07:49 Estimated GFR > 60 ml/min 08/30/17 07:49 BUN/Creatinine Ratio 22 % 08/30/17 07:49 Glucose 255 mg/dL (75-100) H 08/30/17 07:49 POC Glucose 288 (70-105) H 08/30/17 05:53 Hemoglobin A1c 9.8 % (4-6) H 08/27/17 22:09 Lactic Acid 2.30 mmol/L (0.7-2.0) H* 08/27/17 08:43 Calcium 9.1 mg/dL (8.4-10.2) 08/30/17 07:49 Magnesium 1.90 mg/dL (1.7-2.3) 08/27/17 05:34 Total Bilirubin 0.30 mg/dL (0.1-1.2) 08/30/17 07:49 AST 13 units/L (5-40) 08/30/17 07:49 ALT 14 units/L (7-56) 08/30/17 07:49 Alkaline Phosphatase 57 units/L (35-129) 08/30/17 07:49 Total Creatine Kinase 156 units/L (55-170) 08/27/17 05:34 CK-MB (CK-2) 2.5 ng/mL (0.0-4.0) 08/27/17 05:34 CK-MB (CK-2) Rel Index 1.6 (0-4) 08/27/17 05:34 Troponin T < 0.010 ng/mL (0.00-0.029) 08/27/17 05:34 Total Protein 6.8 g/dL (6.3-8.2) 08/30/17 07:49 Albumin 3.7 g/dL (3.9-5) L 08/30/17 07:49 Albumin/Globulin Ratio 1.2 % 08/30/17 07:49 Triglycerides 96 mg/dL (2-149) 08/29/17 04:47 Cholesterol 180 mg/dL (50-199) 08/29/17 04:47 LDL Cholesterol Direct 130 mg/dL (50-130) 08/29/17 04:47 HDL Cholesterol 31 mg/dL (40-59) L 08/29/17 04:47 Cholesterol/HDL Ratio 5.80 % 08/29/17 04:47 TSH 1.890 mlU/mL (0.270-4.200) 08/27/17 05:34 Urine Color Yellow (Yellow) 08/27/17 11:18 Urine Turbidity Clear (Clear) 08/27/17 11:18 Urine pH 5.0 (5.0-7.0) 08/27/17 11:18 Ur Specific [place] 1.032 (1.003-1.030) H 08/27/17 11:18 Urine Protein 30 mg/dl mg/dL (Negative) 08/27/17 11:18 Urine Glucose (UA) >=500 mg/dL (Negative) 08/27/17 11:18 Urine Ketones Tr mg/dL (Negative) 08/27/17 11:18 Urine Blood Neg (Negative) 08/27/17 11:18 Urine Nitrite Neg (Negative) 08/27/17 11:18 Urine Bilirubin Neg (Negative) 08/27/17 11:18 Urine Urobilinogen < 2.0 mg/dL (<2.0) 08/27/17 11:18 Ur Leukocyte Esterase Neg (Negative) 08/27/17 11:18 Urine WBC (Auto) 1.0 /HPF (0.0-6.0) 08/27/17 11:18 Urine RBC (Auto) 5.0 /HPF (0.0-6.0) 08/27/17 11:18 U Epithel Cells (Auto) < 1.0 /HPF (0-13.0) 08/27/17 11:18 Urine Mucus 2+ /HPF 08/27/17 11:18 Salicylates < 0.3 mg/dL (2.8-20.0) L 08/27/17 05:34 Urine Opiates Screen Presumptive negative 08/27/17 11:18 Urine Methadone Screen Presumptive negative 08/27/17 11:18 Acetaminophen < 15.0 ug/mL (10.0-30.0) 08/27/17 05:34 Ur Barbiturates Screen Presumptive negative 08/27/17 11:18 Ur Phencyclidine Scrn Presumptive negative 08/27/17 11:18 Ur Amphetamines Screen Presumptive negative 08/27/17 11:18 U Benzodiazepines Scrn Presumptive negative 08/27/17 11:18 Urine Cocaine Screen Presumptive negative 08/27/17 11:18 U Marijuana (THC) Screen Presumptive negative 08/27/17 11:18 Drugs of Abuse Note Disclamer 08/27/17 11:18 Plasma/Serum Alcohol < 0.01 gm% (0-0.07) 08/27/17 05:34
--- NOTE | 2017-08-30 11:33 | Discharge Summary ---
Providers - Providers Date of Admission: 08/27/17 11:44 Date of discharge: 08/30/17 Attending physician: PAULA SAUCEDO 08/28/17 11:25 Consult to Case Management [CONS] Routine Services Needed at Discharge: Box Car Bracer Notified:: mamadou Consult to Dietitian/Nutrition [CONS] Routine Physician Instructions: Reason For Exam: Reason for Consult: Nutrition Recommendations Reason for Consult: Diet education Occupational Therapy Evaluate and Treat [CONS] Routine Comment: Reason For Exam: Neuro deficits Physical Therapy Evaluation and Treat [CONS] Routine Comment: Reason For Exam: Neuro deficits 08/28/17 11:26 Speech Therapy Evaluation and Treat [CONS] Routine Reason For Exam: swallow eval 08/30/17 08:03 Consult to Case Management [CONS] Routine Services Needed at Discharge: Box Car Bracer Notified:: vish Comment:: FOLLOW UP please Primary care physician: MATERIALS HANDLER Hospitalization Condition: Stable Hospital course: Patient is 61 yo man with history of type 2 diabetes mellitus and hypertension who presents to [facility] emergency Department with altered mental status from the [facility] airport traveling from the [facility] to his home in [place]. Patient was waiting for connecting flight when he developed altered mental status. Patient has been in the [facility] for about 6 months. Patient was in the [facility] visiting a woman he met online. He says he was unable to get back to the [facility] because of financial reasons. CT head without contrast read as no evidence of acute stroke or hemorrhage, remote lacunar infarct in the deep white matter of the right frontal lobe, patchy left ethmoidal sinusitis. -Acute metabolic encephalopathy: treat the underlying condition -Uncontrolled Diabetes Mellitus: added ssi, ADA -Abnormal CT, ?new stroke: use stroke protocol, Brain MRI==>no acute findings. Carotid doppler negative for severe stenosis==>NO acute stroke or TIA -Acute Ethmoidal Sinusitis sepsis, repeat RR 20 and HR 92, poa: start iv abx because this maybe causing the AMS -DVT prophylaxis: Subcutaneous Lovenox -Accelerated hypertension: Treated with IV antihypertensive pen. Full code He has Bipolar disorder but doesn't want to take any medications. He was on [place] long time ago per patient and he doesn't want again. He denies SI, HI. Will discharge to long-term, which patient doesn't want. He wants to stay here. His main issue is Noncompliance which he contributes to financial reason. Counseling done Disposition: DC-01 TO HOME OR SELFCARE Time spent for discharge: 35 minutes Core Measure Documentation - Palliative Care Palliative Care/ Comfort Measures: Not Applicable - Core Measures Any of the following diagnoses?: none - VTE Discharge Requirements Deep Vein Thrombosis/Pulmonary Embolism Present on Admission: No Has pt received <5 days of overlap therapy or INR<2.0: No Anticoagulant overlap therapy prescribed at discharge: No Contraindication No Overlap Therapy order at DC: Not Indicated Exam - Physical Exam Narrative exam: GEN: WDWN, NAD, AWAKE, ALERT, ORIENTATED x 3 HEENT: NCAT, EOMI, PERRL, OP Clear NECK: supple, no adenopathy, no thyromegaly, no JVD CVS/HEART: RRR, NORMAL S1S2, NO JVD, pulses present bilaterally CHEST/LUNGS: CTA B, Symmetrical chest expansion, good air entry bilaterally GI/Abdomen: soft, NTND, good bowel sounds, no guarding or rebound /Bladder: no suprapubic tenderness, no CVA or paraspinal tenderness EXT/Skin: no c/c/e, no obvious rash MSK: FROM x 4 Neuro: CN 2-12 grossly intact except for hearing, no new focal deficits Psych: calm - Constitutional Vitals: Temp Pulse Resp BP Pulse Ox 97.8 F 78 20 163/84 97 08/30/17 07:24 08/30/17 07:24 08/30/17 07:24 08/30/17 07:24 08/30/17 07:24 Plan Activity: no driving until cleared by PCP, other (no strenous activity until cleared by pcp) Diet: low salt, diabetic Special Instructions: record daily BP diary, record blood sugar diary Follow up with: RAYRAY BARONE MD [Primary Care Provider] - 3-5 Days ELI RIVAS MD [Staff Physician] - 7 Days [facility] [Provider Group] - 7 Days Prescriptions: Simvastatin [Zocor TAB] 20 mg PO QHS #30 tablet Ciprofloxacin HCl [Ciprofloxacin TAB] 500 mg PO BID #5 day Insulin NPH/Regular [NovoLIN 70/30] 20 unit SUB-Q BIDDIAB #30 day Lisinopril [Zestril TAB] 2.5 mg PO QDAY #30 tab Metoprolol [Lopressor TAB] 50 mg PO BID #60 tablet oxyCODONE /ACETAMINOPHEN [Percocet 5/325 mg] 1 tab PO Q6H PRN #30 tablet PRN Reason: Pain , Severe (7-10)
== END 2017-08-30 14:58 | disposition home or self-care (01) | DRG 304 ==
LOC: ED 04:56 → 3A 11:44
PROVIDERS: ADMIT Internal Medicine; ATTEND Internal Medicine
DX: I16.0 Hypertensive urgency (principal); G93.41 Metabolic encephalopathy; I10 Essential (primary) hypertension; E11.65 Type 2 diabetes mellitus with hyperglycemia; Z79.82 Long term (current) use of aspirin; E86.0 Dehydration; E11.42 Type 2 diabetes mellitus with diabetic polyneuropathy; J01.20 Acute ethmoidal sinusitis, unspecified; F31.9 Bipolar disorder, unspecified; Z91.19 Patient's noncompliance with other medical treatment and regimen
CPT/HCPCS: 36415; 70450; 70544; 70551; 80053; 80061; 80307; 80320; 81001; 82140; 82550; 82553; 82805; 82962; 83036; 83735; 84443; 84484; 85025; 93005; 93010; 93880; 96372; 96374; 99285; G0480; J0360; J0696; J1644; J1650; J1815; J7030